=== PATIENT | male | born 1960 | race Caucasian/White ===

== ENCOUNTER 2022-05-08 16:25 | Emergency (ER) | payer BC, SELFPAY ==
--- NOTE | ~2022-05-08 | XR_ITS ---
EXAMINATION: XR HAND, LEFT CLINICAL INFORMATION: Left hand pain status post injury. COMPARISON: None available. TECHNIQUE: PA, lateral, and oblique views of the left hand. An indicator arrow points to the fifth digit. FINDINGS: Mild soft tissue swelling and a soft tissue defect medially and distally is seen. Tiny punctate radiopaque densities are seen. The underlying phalanges are intact. Minimal distal interphalangeal degenerative joint changes are seen. Mild first carpal metacarpal degenerative joint changes are seen. The carpal bones are normally aligned. The distal radius and ulna are intact. XR/XR hand LT 2V IMPRESSION: Mild soft tissue swelling and soft tissue defect medially and distally with tiny punctate radiopaque densities. Tiny foreign bodies cannot be excluded. No overt acute underlying osseous abnormality. 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
--- NOTE | ~2022-05-08 | CT_ITS ---
EXAMINATION: CT HEAD WITHOUT CONTRAST CT CERVICAL SPINE WITHOUT CONTRAST CLINICAL INFORMATION: Head strike. Fall. Pain. COMPARISON: None available. TECHNIQUE: Contiguous axial imaging was performed from the skull base to vertex without intravenous administration of contrast. Contiguous axial imaging was performed from the upper chest through the skull base without intravenous administration of contrast. Coronal and sagittal reformats were obtained at the acquisition workstation. This CT examination was performed using dose optimization techniques as appropriate, variously including the following: *Automated exposure control. *Adjustment of mA and/or kV according to patient size (this includes techniques or standardized protocols for targeted exams where dose is matched to indication/reason for exam; i.e. extremities or head). *Use of iterative reconstruction technique. DLP: 1434 mGy-cm FINDINGS: Head: There is no evidence of acute intracranial hemorrhage or edematous territorial infarction. Figueroa-white matter differentiation is preserved. A few foci of hypoattenuation in the periventricular and deep white matter are consistent with mild microangiopathy. Proportional prominence of the ventricles and sulcal spaces without evidence of obstructive hydrocephalus. No abnormal mass effect or midline shift. No extra-axial fluid collections. No acute soft tissue or osseous abnormalities. Moderate polypoid mucosal thickening of the paranasal sinuses. Moderate leftward nasal septal deviation. The mastoid air cells and middle ear cavities are clear. Chronic appearing defect in the left lamina papyracea with herniation of the extraconal adipose tissue into the ethmoid air cells. 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 The atlantooccipital and atlantoaxial articulations remain well aligned. Straightening of the normal cervical lordosis. Otherwise, there is anatomic alignment of the vertebral bodies and posterior elements. No evidence of acute fracture or subluxation. The vertebral body heights are maintained. Moderate degenerative disc disease at C5-C6. Mild degenerative disc disease at all additional cervical levels. Facet and uncovertebral joint arthropathy leads to osseous encroachment on the right greater than left neural foramina from C2-C6. There is no prevertebral soft tissue swelling. The thyroid gland and remaining cervical soft tissues are normal in appearance. The lung apices demonstrate no abnormalities. CT/CT cervical spine wo IV con IMPRESSION: 1. No evidence of acute intracranial hemorrhage or edematous territorial infarction. Mild underlying microangiopathy and generalized cerebral volume loss. 2. No evidence of acute fracture or traumatic subluxation of the cervical spine. 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
--- NOTE | ~2022-05-08 | XR_ITS ---
EXAMINATION: XR HAND, RIGHT CLINICAL INFORMATION: Right hand pain status post injury. COMPARISON: None available. TECHNIQUE: PA, lateral, and oblique views of the right hand. An indicator arrow points to the distal aspect of the fifth digit. FINDINGS: Mild soft tissue swelling and soft tissue distortion distally in the fifth digit is seen. Tiny radiopaque densities are seen distally. The underlying phalanges appear intact. Minimal interphalangeal and first carpal metacarpal degenerative joint changes are seen. There is no acute fracture or dislocation. The tarsal bones are normally aligned. The distal radius and ulna are intact. XR/XR hand RT 2V IMPRESSION: 1. Mild soft tissue swelling and distortion in the fifth digit with tiny radiopaque densities distally. The underlying phalanges appear intact. No acute fracture. 2. Minimal degenerative joint changes suggesting osteoarthritis.
[2022-05-08 16:30] VITALS: BP 183/93; PULSE 75; RESP 16; TEMP 36.1; O2SAT 99; BMI 45.3
--- NOTE | 2022-05-08 16:45 | ED_ITS ---
HPI - General Adult General Chief complaint: Fall <NATI Song - Last Filed: 05/08/22 16:46> Stated complaint: Fall/ Both hands injury <NATI Song - Last Filed: 05/08/22 16:46> Time Seen by Provider: 05/08/22 17:39 <NATI Song - Last Filed: 05/08/22 16:46> Source: patient and RN notes reviewed <Jerrod Calix - Last Filed: 05/08/22 19:26> Mode of arrival: ambulatory <Jerrod Calix - Last Filed: 05/08/22 19:26> Limitations: no limitations <Jerrod Calix - Last Filed: 05/08/22 19:26> History of Present Illness HPI narrative: 61-year-old male past medical history significant for hypertension, atrial fibrillation on Eliquis presents for evaluation after a fall. 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 ? He reports that both his hands got dragged along the gravel. He does not believe that he struck his head on the ground but states that his legs on up over the back was had may have kicked himself in the head He denies any loss of consciousness Denies any headaches or neck pain He sustained lacerations to both hands He rates his discomfort as 5/10. Patient reports that he had surgery 3 years ago and believes his tetanus is up-to-date from that time <Jerrod Calix - Last Filed: 05/08/22 19:26> Related Data Home medications: Previous Rx's Medication Instructions Recorded cephalexin 500 mg capsule 500 mg PO QID 3 days #12 caps 05/08/22 <NATI Song - Last Filed: 05/08/22 16:46> Allergies/adverse reactions: Allergies Allergy/AdvReac Type Severity Reaction Status Date / Time lisinopril [LISINOPRIL] Allergy Intermediate COUGH Unverified 11/07/19 15:42 <NATI Song - Last Filed: 05/08/22 16:46> Review of Systems Constitutional: Constitutional: Reports as per HPI and Denies chills <Jerrod Calix - Last Filed: 05/08/22 19:26> Cardiovascular: Cardiovascular: Denies chest pain <Jerrod Duke - Last Filed: 05/08/22 19:26> Musculoskeletal: Comments: Bilateral hand pain <Jerrod O - Last Filed: 05/08/22 19:26> Integumentary/Breasts: Comments: Laceration to right pinky finger, right hand and left hand <Jerrod O - Last Filed: 05/08/22 19:26> PMFSH Social History Social History: Social History Advance Directives: Yes Advance Directives Information Provided: No Advance Directives on File: No <NATI Song - Last Filed: 05/08/22 16:46> Physical Exam ED Vital Signs: Vital Signs - 24 hr 05/08/22 16:30 Temperature 96.9 F Pulse Rate 75 Respiratory Rate 16 Blood Pressure 183/93 H Pulse Oximetry 99 Oxygen Delivery Method Room Air BMI result Body Mass Index 45.3 <NATI Song - Last Filed: 05/08/22 16:46> Vital Signs - 24 hr 05/08/22 16:30 Temperature 96.9 F Pulse Rate 75 Respiratory Rate 16 Blood Pressure 183/93 H Pulse Oximetry 99 Oxygen Delivery Method Room Air BMI result Body Mass Index 45.3 <Jerrod Duke - Last Filed: 05/08/22 19:26> Const General: healthy appearing, comfortable, no acute distress, alert and awake <Jerrod O - Last Filed: 05/08/22 19:26> Nutritional Appearance: well nourished < - Last Filed: 05/08/22 19:26> Orientation/consciousness: patient oriented x3 <Jerrod O - Last Filed: 05/08/22 19:26> Eyes Eyelids: Yes eyelids normal <Jerrod rSikanth - Last Filed: 05/08/22 19:26> Conjunctivae: conjunctivae normal <Jerrod - Last Filed: 05/08/22 19:26> Sclerae: sclerae normal <Jerrod O - Last Filed: 05/08/22 19:26> Corneas: corneas normal < - Last Filed: 05/08/22 19:26> Pupils: Equal, round and reactive pupils present <Jerrod OSaint Joseph - Last Filed: 05/08/22 19:26> EOM: EOMs intact bilaterally <Jerrod O Last Filed: 05/08/22 19:26> Skin Other: Patient has a 3 cm linear laceration to the distal right 5th finger distal to the PIP joint. No active bleeding. Patient has a 4 cm, v-shaped flap like laceration to the dorsal surface of the right hand approximate the area of the 2nd and 3rd MCP joints. There is also a large gouge to the dorsal surface of the left 5th finger. No clear lacerations, but there is a large chunk of flush missing to the dorsal surface of the finger approximately 2 x 3 cm <Jerrod O - Last Filed: 05/08/22 19:26> General skin exam: no rashes or lesions noted and elasticity normal <Jerrod - Last Filed: 05/08/22 19:26> Lesions: no lesions <Jerrod O - Last Filed: 05/08/22 19:26> Rashes: no rashes <Jerrod O - Last Filed: 05/08/22 19:26> Neuro General: patient oriented x3 <Jerrod O - Last Filed: 05/08/22 19:26> Cranial nerves: Yes Equal, round and reactive pupils present <Jerrod O - Last Filed: 05/08/22 19:26> Extrem Other: The patient is able to flex and extend all digits of both hands without difficulty <Jerrod OBrenden - Last Filed: 05/08/22 19:26> General: Yes full ROM <Jerrod O Last Filed: 05/08/22 19:26> Course Course Course Narrative: RME performed by Esther Jarvis PA-C. Patient is a 61 year old male presenting to the emergency department with bilateral hand pain after fall off the back of his truck trying to get a snowblower out of it. Patient states that he is on Eliquis. Patient denies any loss of consciousness. Imaging ordered. Patient up to date on tetanus. <NATI Song - Last Filed: 05/08/22 16:46> Medications Administered Discontinued Medications Generic Name Dose Route Start Last Admin Trade Name Freq PRN Reason Stop Dose Admin Lidocaine HCl 5 ml 05/08/22 17:47 05/08/22 18:43 Lidocaine Hcl 1 % Mpf 5 Ml Vial INFILTRATI 05/08/22 17:48 5 ml ONCE ONE Administration <NATI Song - Last Filed: 05/08/22 16:46> Medications Administered Discontinued Medications Generic Name Dose Route Start Last Admin Trade Name Freq PRN Reason Stop Dose Admin Lidocaine HCl 5 ml 05/08/22 17:47 05/08/22 18:43 Lidocaine Hcl 1 % Mpf 5 Ml Vial INFILTRATI 05/08/22 17:48 5 ml ONCE ONE Administration <Jerrod Calix - Last Filed: 05/08/22 19:26> Procedures Laceration Laceration 1: Site: hand <Jerrod Calix - Last Filed: 05/08/22 19:26> Side (If applicable): right <Jerrod Calix - Last Filed: 05/08/22 19:26> Size (cm): 4 <Jerrod Calix - Last Filed: 05/08/22 19:26> Description: flap and other (V-shaped) <Jerrod Calix - Last Filed: 05/08/22 19:26> Depth: simple, single layer <Jerrod Calix - Last Filed: 05/08/22 19:26> Local Anesthetic: lidocaine 1% <Jerrod Calix - Last Filed: 05/08/22 19:26> Amount of anesthesia used (mL): 4 <Jerrod Calix - Last Filed: 05/08/22 19:26> Pre-repair: wound explored and irrigated extensively <Jerrod Calix - Last Filed: 05/08/22 19:26> Skin layer closed with: nylon <Jerrod Calix - Last Filed: 05/08/22 19:26> Size (cm): 4-0 <Jerrod Calix - Last Filed: 05/08/22 19:26> Number of sutures: 5 <Jerrod Calix - Last Filed: 05/08/22 19:26> Technique: simple, interrupted <Jerrod Calix - Last Filed: 05/08/22 19:26> Laceration 2: Site: other (Right 5th finger) <Jerrod O Last Filed: 05/08/22:26> Side (If applicable): right < Last Filed: 05/08/22:26> Size (cm): 5 <Jerrod - Last Filed: 05/08/22 19:26> Description: irregular and contaminated < - Last Filed: 05/08/22:26> Depth: simple, single layer < Last Filed: 05/08/22 19:26> Local Anesthetic: lidocaine 1% (A digital block) < Last Filed: 05/08/22:26> Amount of anesthesia used (mL): 5 < Last Filed: 05/08/22 19:26> Pre-repair: wound explored and irrigated extensively < Last Filed: 05/08/22 19:26> Skin layer closed with: nylon < Last Filed: 05/08/22 19:26> Size (cm): 4-0 < Last Filed: 05/08/22:26> Number of sutures: 6 < Last Filed: 05/08/22 19:26> Technique: simple, interrupted <Jerrod Last Filed: 05/08/22 19:26> Medical Decision Making Medical Decision Making MDM Narrative: Patient has a laceration to his right 5th finger as well as the dorsalis the right hand that will require closure. He has an avulsion to the dorsal surface of left 5th finger that is not amenable to sutures. This will be dressed with a nonstick bandage. All wounds were thoroughly irrigated and clean. Patient reports he is up-to-date on tetanus. X-rays do not show any evidence of fractures, so no open fractures. <Jerrod O Last Filed: 05/08/22 19:26> Differential Diagnosis Laceration Skin tear Functional Impression Avulsion <Jerrod Fifi - Last Filed: 05/08/22 19:26> Independent Interpretation I performed an independent interpretation of an: Plain X-Ray (No evident fractures of the right 5th finger. Fracture left 5th finger) <Jerrod Calix - Last Filed: 05/08/22 19:26> Radiology Impression Discussion of test interpretation with radiology: I have reviewed the radiologist's reading. <Jerrod Calix - Last Filed: 05/08/22 19:26> Radiologist Impression: No fractures, tiny radiopaque foreign bodies <Jerrod Calix - Last Filed: 05/08/22 19:26> Discharge Plan Discharge Clinical Impression: Hand laceration <NATI Song - Last Filed: 05/08/22 16:46> Patient Disposition: Home, Self-Care <NATI Song - Last Filed: 05/08/22 16:46> Instructions: Laceration (ED) <NATI Song - Last Filed: 05/08/22 16:46> Additional Instructions: New had 2 separate wounds that were sutured today. Your hand has 5 stitches in an your pinky finger has 6 stitches in it These can be removed in 7-10 days Keep the area clean and dry Follow-up with your primary doctor to make sure your tetanus is up-to-date Take cephalexin 4 times daily for 3 days <NATI Song - Last Filed: 05/08/22 16:46> Prescriptions: New cephalexin 500 mg capsule 500 mg PO QID 3 Days Qty: 12 0RF <NATI Song - Last Filed: 05/08/22 16:46>
--- NOTE | 2022-05-08 18:25 | PC.NURSE ---
bilateral hand placed in warm water and betadine for soaking pre sutures.
[2022-05-08] MEDS: Lidocaine HCl 1 % MPF 5 ML VIAL INFILTRATI (18:43)
--- NOTE | 2022-05-08 20:49 | PC.NURSE ---
Bilateral hand dressing applied. Pt tolerated well. Wound care education provided with s/s infection. Discharge instructions reviewed with pt. Pt verbalizes understanding.
== END 2022-05-08 20:50 | disposition home or self-care (01) ==
PROVIDERS: Emergency Provider Emergency Medicine Emergency Medical Services; PCP Internal Medicine
DX: S61.411A Laceration without foreign body of right hand, initial encounter (principal); S61.216A Laceration without foreign body of right little finger without damage to nail, initial encounter; R51.9 Headache, unspecified; M54.2 Cervicalgia; M79.642 Pain in left hand; M79.641 Pain in right hand; Y93.29 Activity, other involving ice and snow; Y92.007 Garden or yard of unspecified non-institutional (private) residence as the place of occurrence of the external cause; Y99.9 Unspecified external cause status; Z79.899 Other long term (current) drug therapy
CPT/HCPCS: 12044; 70450; 72125; 73120; 96372; 99282; 99284